=== PATIENT | female | born 1995 | race Hispanic/Latino ===

== ENCOUNTER 2017-09-01 00:16 | Day surgery (SDC) | payer OTHER ==
[2017-09-01 00:42] VITALS: BMI 39.1
[2017-09-01] MEDS ORDERED: Promethazine HCl 25 MG/ML VIAL IM/IV PRN (01:04)
--- NOTE | 2017-09-01 01:04 | PDOC.LDHP ---
Labor and Delivery H&P HPI: 22 [address] Fried presents with contractions for 1 hour. No LOF, no VB, no ADAM or visual changes. Good movement. Denies issues. Current gestational age (weeks): 39 (6 days) Dating criteria: last menstrual period Current complications: none Abnormal US findings: No Current medications: none Previous surgical history: none Allergies/Adverse Reactions: Allergies Allergy/AdvReac Type Severity Reaction Status Date / Time No Known Allergies Allergy Verified 09/01/17 00:42 Social history: none - Physical Exam Vital signs reviewed and normal: yes General: NAD Abdomen: gravid FHT: category 1 - Vaginal Exam cm dilated: 2 Effacement: 50% Station: -2 - Assessment Latent labor at term - Plan Plan: observation in L&D (Obs for now. No ROM, offer pain meds. Obs for 1 hour.)
--- NOTE | 2017-09-01 01:57 | PDOC.EVN ---
Event Note - Event Note Event Note: Cervix unchanged at recheck. Ok for outpatient care.
== END 2017-09-01 02:10 | disposition home or self-care (01) ==
LOC: L&D/OP 00:16
PROVIDERS: ATTEND Family Medicine
DX: O47.1 False labor at or after 37 completed weeks of gestation (principal); Z3A.39 39 weeks gestation of pregnancy